=== PATIENT | female | born 1995 | race African-American/Black ===

== ENCOUNTER → 2017-06-15 | Outpatient (CLI) | payer BC | LOC: COL.RAD 15:41 | DX: R76.11 Nonspecific reaction to tuberculin skin test without active tuberculosis (principal) ==

== ENCOUNTER 2019-02-14 15:11 | Emergency (ER) | payer BC ==
[~2019-02-14] VITALS: Ht 154.9 cm; Wt 73.5 kg
[2019-02-14 15:21] VITALS: BP 119/57; PULSE 84; TEMP 97.7
== END 2019-02-14 17:20 | disposition left against medical advice (07) ==
LOC: COL.ER 15:11
DX: R05 Cough (principal)

== ENCOUNTER → 2019-02-20 | Outpatient (CLI) | payer BC ==
[2019-02-20 15:28] LABS: BASO % 0.3 % (0.0-2.0); EOS % 12.9 % (0-4.0); GRAN # 3.9 (1.4-6.5); GRAN % 51.4 % (42.2-75.2); HEMATOCRIT 41.3 % (37.0-47.0); HEMOGLOBIN 13.5 g/dl (12.5-16.0); LYMPH # 2.1 (1.2-3.4); LYMPH % 26.8 % (20.0-51.0); MEAN CELL VOLUME 91 fl (80.0-100.0); MEAN CORPUSCULAR HEMOGLOBIN 30 pg (27.0-31.0); MEAN CORPUSCULAR HGB CONC 33 g/dl (33.0-37.0); MEAN PLATELET VOLUME 12.2 fl (7.4-10.4); MONO # 0.6 (0.1-0.6); MONO % 8.1 % (1.7-9.3); PLATELET COUNT 243 K/mm3 (130-400); RED BLOOD COUNT 4.54 M/mm3 (4.10-5.30); REDCELL DISTRIBUTION WIDTH-CV 13.3 % (11.5-14.5)
[2019-02-20 15:39] LABS: ALANINE AMINOTRANSFERASE 25 U/L (9-52); ALBUMIN 4.4 gm/dL (3.5-5.0); ALKALINE PHOSPHATASE 52 U/L (50-136); ANION GAP 9 mmol/L (7-16); AST,SGOT 20 U/L (15-37); BILIRUBIN,TOTAL 0.2 mg/dL (0.0-1.0); BLOOD UREA NITROGEN 10 mg/dL (7-17); CALCIUM 9.5 mg/dL (8.4-10.2); CARBON DIOXIDE 26 mmol/L (22-30); CHLORIDE 107 mmol/L (98-107); CREATININE, serum 0.63 (0.52-1.25); GLUCOSE 100 mg/dL (74-106); POTASSIUM 3.9 mmol/L (3.4-5.0); SODIUM 141 mmol/L (137-145); TOTAL PROTEIN 7.6 gm/dL (6.4-8.2)
[2019-02-20 15:40] LABS: C-REACTIVE PROTEIN < 0.5 mg/dL (0.0-0.9)
[2019-02-20 15:49] LABS: ERYTHROCYTE SEDIMENTATION RATE 6 mm/hr (0-20)
== END ==
LOC: COL.RAD 14:59
PROVIDERS: Nurse Practitioner
DX: Z01.812 Encounter for preprocedural laboratory examination (principal); J98.4 Other disorders of lung; R05 Cough

== ENCOUNTER → 2019-02-21 | Outpatient (CLI) | payer BC | LOC: COL.LAB 13:11 | DX: J98.4 Other disorders of lung (principal) ==

== ENCOUNTER → 2019-02-26 | Outpatient (CLI) | payer BC | LOC: ZCOL.LAB 09:02 | DX: J45.909 Unspecified asthma, uncomplicated (principal) ==

== ENCOUNTER 2019-04-18 15:24 | Emergency (ER) | payer BC ==
[~2019-04-18] VITALS: Ht 157.5 cm; Wt 68.2 kg
[2019-04-18 15:40] VITALS: BP 120/75; TEMP 97.6
[2019-04-18 16:39] LABS: COLLECTION METHOD CLEAN CATCH
[2019-04-18 16:55] LABS: MUCOUS Present /lpf; PH 6 (5-8); URINE APPEARANCE Hazy; URINE BACTERIA None Seen /hpf; URINE BILIRUBIN Negative (NEGATIVE); URINE BLOOD Negative (NEGATIVE); URINE COLOR Yellow; URINE GLUCOSE Negative (NEGATIVE); URINE KETONE 2+ (NEGATIVE); URINE LEUKOCYTE ESTERASE Negative (NEGATIVE); URINE NITRATE Negative (NEGATIVE); URINE PROTEIN(semi-quant) Negative (NEGATIVE); URINE RBC 0-2 /hpf; URINE UROBILINOGEN Negative (NEGATIVE)
[2019-04-18] MEDS ORDERED: ZOFRAN ODT4 MG PO (16:56)
[2019-04-18 17:10] VITALS: PULSE 81
== END 2019-04-18 17:10 | disposition home or self-care (01) ==
LOC: COL.ER 15:24
PROVIDERS: Physician Assistant
DX: R11.2 Nausea with vomiting, unspecified (principal)